=== PATIENT | female | born 1995 | race Two or more races ===

== ENCOUNTER 2024-06-05 14:59 | Emergency (ER) | payer MEDICAID, SELFPAY ==
[2024-06-05 15:01] VITALS: BMI 24.2
[2024-06-05 15:40] VITALS: BP 124/81; PULSE 110; RESP 16; TEMP 37.1; O2SAT 99; BMI 23.3
[2024-06-05] MEDS: LOPERAMIDE 2 MG CAPSULE 4 MG PO (15:51)
[2024-06-05] MEDS: ONDANSETRON ODT 4 MG TABRAP PO (15:51)
--- NOTE | 2024-06-05 15:54 | EDNOTE_ITS ---
<Statement entered by Albertina Ashley MD - 06/06/24 12:03> As co-signing physician, I was present and available for consult prn. I concur with the plan and care as documented by the midlevel provider. Nausea/Vomit./Diarrhea-RME/HPI General Chief complaint: Nausea/Vomiting/Diarrhea Stated complaint: VOMITING AND DIARRHEA FOR 3 DAYS Time Seen by Provider: 06/05/24 15:22 Arrival date/time: 06/05/24 14:59 29-year-old female presents to the emergency department today with complaints of nausea vomiting and diarrhea patient for symptoms ongoing for the last 2 to 3 days patient reports no abdominal pain chest pain or shortness of breath patient reports he plays she has food poisoning Limitations: no limitations Related Data Previous Rx's ?Medication ?Instructions ?Recorded quetiapine 300 mg tablet 300 mg PO QDAY #30 tabs 11/29 11/18 quetiapine 300 mg tablet 300 mg PO QDAY #30 tabs 12/28 10/18 sertraline 100 mg tablet 100 mg PO QDAY #30 tabs 12/28 10/18 quetiapine 300 mg tablet 300 mg PO QDAY #90 tabs 01/29 sertraline 100 mg tablet 100 mg PO QDAY #90 tabs 01/29 quetiapine 300 mg tablet 300 mg PO QDAY #30 tabs 04/20 sertraline 100 mg tablet 100 mg PO QDAY #30 tabs 04/20 quetiapine 300 mg tablet 300 mg PO QDAY #30 tabs 05/29 12/20 quetiapine 300 mg tablet 300 mg PO QDAY #30 tabs 05/29 12/20 sertraline 100 mg tablet 100 mg PO QDAY #30 tabs 05/29 12/20 quetiapine 300 mg tablet 300 mg PO .qhs #30 tabs 07/28 08/19 sertraline 100 mg tablet 100 mg PO QDAY #30 tabs 08/19 rizatriptan 10 mg tablet (Maxalt) 10 mg PO Q2H PRN alena nakul headache 12/29/22 #20 tabs quetiapine 300 mg tablet 300 mg PO QDAY #30 tabs 12/28 06/19 loperamide 2 mg capsule (Imodium 2 mg PO Q6H PRN loose stool #14 06/05/24 A-D) caps ondansetron 4 mg disintegrating 4 mg PO Q8H PRN nausea and 06/05/24 tablet vomiting #10 tabs Allergies Allergy/AdvReac Type Severity Reaction Status Date / Time No Known Allergies Allergy Verified 06/05/24 15:00 Review of Systems Review of Systems Systems Reviewed: All systems reviewed, normal except as documented Constitutional Constitutional: Reports system reviewed and no additional complaints, except as documented, Denies fever(s) and Denies headache(s) Eyes Eyes: Reports system reviewed and no additional complaints, except as documented and Denies blurry vision ENT Ears, Nose, Mouth, and Throat: Reports system reviewed and no additional complaints, except as documented, Denies headache(s), Denies nasal congestion and Denies nasal discharge Cardiovascular Cardiovascular: Reports system reviewed and no additional complaints, except as documented, Denies chest pain and Denies dyspnea Respiratory Respiratory: Reports system reviewed and no additional complaints, except as documented, Denies chest congestion, Denies cough and Denies dyspnea Gastrointestinal Gastrointestinal: Reports system reviewed and no additional complaints, except as documented, Denies abdominal pain, Reports loose stools and Reports nausea Integumentary/Breasts Skin/Breast: Reports system reviewed and no additional complaints, except as documented and Denies rash Neurologic Neurologic: Reports system reviewed and no additional complaints, except as documented, Reports as per HPI and Denies headache(s) Past Medical History Past Medical History NEUROLOGIC: Negative Neurological Disorders CARDIAC: Negative Cardiac Disorders or Congestive Heart Failure RESPIRATORY: Negative Chronic Obstructive Pulmonary Disease (COPD) GASTROINTESTINAL: Negative Gastrointestinal Disorders GENITOURINARY: Negative Genitourinary Disorders or Renal Disease MUSCULOSKELETAL: Negative Musculoskeletal Disorders ENDOCRINE: Negative Endocrine Disorders, Diabetes Mellitus Type 1 or Diabetes Mellitus Type 2 HEMATOLOGIC: Negative Blood Disorders PSYCHO/SOCIAL: Positive Schizophrenia, Recreational Drug Use and Depression Family History FAMILY HISTORY: Negative Family Cardiac Disorders Social History SMOKING STATUS: Never smoker SUBSTANCE USE: marijuana ED Exam General Limitations: Present no limitations General appearance: Present alert and in no apparent distress Head Head exam: Present atraumatic Eye Eye exam: Present normal appearance, PERRL and EOMI ENT ENT exam: Present normal exam, normal oropharynx and mucous membranes moist Neck Neck exam: Present normal inspection, full ROM and trachea midline Chest Chest inspection: Present normal inspection and symmetric chest wall rise Respiratory Respiratory exam: Present normal lung sounds bilaterally Cardiovascular Cardiovascular exam: Present regular rate, normal rhythm and normal heart sounds Abdominal Exam Abdominal exam: Present soft and normal bowel sounds; Absent distention, tenderness, guarding, rebound, rigidity, Burns's sign or tenderness at McBurney's Point Abdominal tenderness: Absent RUQ or RLQ Extremities Exam Extremities exam: Present normal inspection and full ROM Back Exam Back exam: Present normal inspection and full ROM Neurological Exam Neurological exam: Present alert, oriented X3 and CN II-XII intact Psychiatric Psychiatric exam: Present normal affect and normal mood Skin Skin exam: Present warm, dry, intact and normal color Course Quality Measures none Orders Category Date Time Status Loperamide [Imodium] Med 06/05/24 15:42 Discontinued 4 mg PO X1 ONE Ondansetron Odt [Zofran Odt] Med 06/05/24 15:42 Discontinued 4 mg PO X1 ONE Vital Signs Vital signs: Vital Signs Temperature 98.7 F 06/05/24 15:40 Pulse Rate 110 H 06/05/24 15:40 Respiratory Rate 16 06/05/24 15:40 Blood Pressure 124/81 06/05/24 15:40 Pulse Oximetry (%) 99 06/05/24 15:40 Oxygen Delivery Method Room Air 06/05/24 15:40 O2 saturation 99% room air within normal limits Nausea/Vomiting/Diarrhea MDM Narrative MDM Narrative:: 29-year-old female presents to the emergency department today with complaints of nausea vomiting and diarrhea patient for symptoms ongoing for the last 2 to 3 days patient reports no abdominal pain chest pain or shortness of breath patient reports he plays she has food poisoning On exam patient well-appearing patient does not appear ill or toxic patient is soft nontender abdomen Patient was offered lab work imaging patient declined Patient given Zofran as well as Imodium and discharged home Patient has strict instructions return for worsening symptoms Patient data External records reviewed:: [facility] previous records Clinical information provided by:: patient Social determinants that could affect healthcare access:: none Patient has the following chronic illnesses:: None How is presenting disease/condition affected by chronic disease/condition?: no chronic disease Evaluation data The following diagnostics were reviewed and interpreted by me:: other (specify) (N/A) Lab and/or radiology exams considered but not ordered:: Consider not ordered Interpretation Summary: N/A Medications / Prescriptions Medications / Prescriptions considered but not ordered:: Given Medication administrations:: Medication Administration History Discontinued Medications Loperamide HCl (Loperamide 2 Mg Capsule) 4 mg PO X1 ONE Stop: 06/05/24 15:43 Last Admin: 06/05/24 15:51 Dose: 4 mg Documented By: ZADI Ondansetron HCl (Ondansetron Odt 4 Mg Tabrap) 4 mg PO X1 ONE; Protocol Stop: 06/05/24 15:43 Last Admin: 06/05/24 15:51 Dose: 4 mg Documented By: ZAID Given Consultations Consultation(s) initiated? (list below): No Diagnosis Nausea Differential Diagnosis: traveler's diarrhea, food poisoning and gastroenteritis Most likely diagnosis given after review of the tests above:: Gastritis Admission Indicated Admission indicated?: not indicated Admission Request Was there a request for admission?: No Disposition Plan Disposition Plan: Discharge Discharge Attestation Discharge Attestation: The patient and all family members were given an opportunity to ask questions and understood the discharge instructions. Discharge instructions specifically effects, indications for sooner follow up or return to the emergency department, and the expected course of current diagnosis. Patient condition: Stable Discharge Plan Plan Patient Disposition: HOME (Self Care) Disposition Comment: Stable Prescriptions/Referrals Prescriptions/Med Rec: New loperamide [Imodium A-D] 2 mg capsule 2 mg PO Q6H PRN (Reason: loose stool) Qty: 14 0RF ondansetron 4 mg tablet,disintegrating 4 mg PO Q8H PRN (Reason: nausea and vomiting) Qty: 10 0RF No Action sertraline 100 mg tablet 100 mg PO QDAY Qty: 30 0RF quetiapine 300 mg tablet 300 mg PO QDAY Qty: 30 0RF quetiapine 300 mg tablet 300 mg PO .qhs Qty: 30 0RF quetiapine 300 mg tablet 300 mg PO QDAY Qty: 30 0RF quetiapine 300 mg tablet 300 mg PO QDAY Qty: 30 0RF quetiapine 300 mg tablet 300 mg PO QDAY Qty: 30 0RF sertraline 100 mg tablet 100 mg PO QDAY Qty: 30 0RF quetiapine 300 mg tablet 300 mg PO QDAY Qty: 90 0RF sertraline 100 mg tablet 100 mg PO QDAY Qty: 90 0RF quetiapine 300 mg tablet 300 mg PO QDAY Qty: 30 0RF sertraline 100 mg tablet 100 mg PO QDAY Qty: 30 0RF quetiapine 300 mg tablet 300 mg PO QDAY Qty: 30 0RF sertraline 100 mg tablet 100 mg PO QDAY Qty: 30 0RF rizatriptan [Maxalt] 10 mg tablet 10 mg PO Q2H PRN (Reason: migraine headache) Qty: 20 0RF Rx Instructions: do not exceed 3 doses per 24 hrs Problem List Clinical Impression: Gastroenteritis Patient/Caregiver Discharge Instructions Education Materials: ED Gastroenteritis, Noninfectious Additional Instructions: Please follow up with your primary care doctor in the next 24-48hrs for any worsening symptoms return here immediately Print Language: Djib[place]ian Stand Alone Forms: Landy Award Info., Patient Portal Info Letter PA/ANGLE DOZER OPERATOR Supervising Physician PA/ANGLE DOZER OPERATOR Supervising Physician: Dr. ASHLEY
== END 2024-06-05 20:35 | disposition home or self-care (01) ==
PROVIDERS: Emergency Provider Emergency Medicine; PCP Physician Assistant
DX: K52.9 Noninfective gastroenteritis and colitis, unspecified (principal)
CPT/HCPCS: 99282; Q0162; A9270